=== PATIENT | female | born 1960 | race Caucasian/White ===

== ENCOUNTER 2021-06-24 08:43 | Observation (INO) | payer OTHER ==
[2021-06-24] MEDS ORDERED: Iopamidol 370 76% 100 ML VIAL ONE (09:02)
[2021-06-24] MEDS ORDERED: Morphine 4 MG/ML VIAL ONE (09:13)
[2021-06-24] MEDS ORDERED: Ondansetron PF 4 MG/2 ML Vial ONE (09:13)
[2021-06-24 09:34] LABS: #Basophils 0.1 thou/uL (0.0-0.2); #Eosinphils 0.2 thou/uL (0.0-0.7); #Monocytes 0.7 thou/uL (0.11-0.59); #Neutrophils 3.2 thou/uL (1.40-6.50); %Basophils 1.1 % (0.0-1.0); %Eosinophils 2.9 % (0.0-10.0); %Monocytes 11.6 % (0.0-10.0); %Neutrophils 52.4 % (42.0-75.0); Hemoglobin 16.7 g/dL (12.0-16.0); Mean Corpuscular HGB CONC 34.8 g/dL (32.0-36.0); Mean Corpuscular Hemoglobin 35.7 pg (27.0-31.0); Mean Platelet Volume 7.8 fL (7.4-10.4); Platelet Count 257 thou/uL (130-400); Red Blood Cell (RBC) Count 4.67 mill/uL (4.20-5.40); White Blood Cell (WBC) Count 6.1 thou/uL (4.8-10.8)
[2021-06-24 09:59] LABS: ALT (SGPT) 28 U/L (8-55); AST (SGOT) 43 U/L (5-34); Albumin 4.6 g/dL (3.5-5.0); Alkaline Phosphatase 69 U/L (40-110); Anion Gap 17 mmol/L (10-20); BUN (Urea Nitrogen) 6 mg/dL (9.8-20.1); Bilirubin, Total 1.9 mg/dL (0.2-1.2); Calc. Creatinine Clearance 0 mL/min (70-130); Calcium 9.5 mg/dL (7.8-10.44); Carbon Dioxide 19 mmol/L (22-29); Chloride 94 mmol/L (98-107); Glucose 89 mg/dL (70-105); Potassium 5.1 mmol/L (3.5-5.1); Protein, Total 8.6 g/dL (6.0-8.3); Sodium 125 mmol/L (136-145)
[2021-06-24] MEDS ORDERED: Lorazepam 2 MG/ML VIAL IM PRN (11:12)
[2021-06-24] MEDS ORDERED: Ondansetron ODT 4 MG TAB PO PRN (11:12)
[2021-06-24] MEDS ORDERED: Lorazepam 1 MG TAB PO PRN (11:12)
[2021-06-24] MEDS ORDERED: Electrolyte Replacement Protocol 1 EACH FS SCH (11:15)
[2021-06-24] MEDS ORDERED: Calcium Carbonate 500 MG ChewTAB PO PRN (11:34)
[2021-06-24] MEDS ORDERED: Acetaminophen 325 MG TAB PO PRN (11:34)
[2021-06-24] MEDS ORDERED: Senokot S 8.6-50 MG TAB PO PRN (11:34)
[2021-06-24 11:53] LABS: Magnesium 2.1 mg/dL (1.6-2.6); Phosphorus 3.5 mg/dL (2.3-4.7)
[2021-06-24 12:20] LABS: Anion Gap 16 mmol/L (10-20); BUN (Urea Nitrogen) 6 mg/dL (9.8-20.1); Calc. Creatinine Clearance 0 mL/min (70-130); Calcium 9.4 mg/dL (7.8-10.44); Carbon Dioxide 23 mmol/L (22-29); Chloride 95 mmol/L (98-107); Glucose 88 mg/dL (70-105); Potassium 3.8 mmol/L (3.5-5.1); Sodium 130 mmol/L (136-145)
[2021-06-24 12:51] VITALS: BMI 21.2
[2021-06-24] MEDS ORDERED: Cyclobenzaprine 10 MG TAB PO SCH (13:30)
[2021-06-24] MEDS ORDERED: Pantoprazole 40 MG VIAL IVP SCH (13:30)
[2021-06-24] MEDS ORDERED: Multivit, Therapeutic 1 TAB PO SCH (13:30)
[2021-06-24] MEDS ORDERED: Folic Acid 1 MG TAB PO SCH (13:30)
[2021-06-24] MEDS ORDERED: Electrolyte Replacement Protocol FS PRN (13:45)
[2021-06-24] MEDS: Lorazepam 1 MG TAB PO SCH ×2 (13:58→20:39)
[2021-06-24] MEDS ORDERED: Thiamine HCl 200 MG/2 ML VIAL SLOW IVP SCH (14:00)
[2021-06-24 14:30] LABS: Bacteria/HPF None Seen HPF (None Seen); Bilirubin Negative (Negative); Blood, Urine Negative (Negative); Clarity Clear (Clear); Glucose, Urine (Dipstick) Normal (Negative); Ketone, Urine Negative (Negative); Leukocyte Negative Leu/uL (Negative); Nitrite Negative (Negative); Protein, Urine (Dipstick) Negative (Neg-Trace); RBC/HPF 0-3 HPF (0-3); Specific Gravity, Urine 1.024 (1.002-1.036); Squamous Epithelial 0-3 HPF (0-3); Urobilinogen Normal mg/dL (Less than 2); WBC/HPF 0-3 HPF (0-3); pH, Urine 6.5 (5.0-9.0)
[2021-06-24 14:39] LABS: Amphetamine Not Detected (NotDetected); Barbiturates Screen Not Detected (NotDetected); Benzodiazepine Screen Not Detected (NotDetected); Cocaine Metabolite Screen Not Detected (NotDetected); Methadone Not Detected (NotDetected); Methamphetamine Not Detected (NotDetected); Opiate Screen Detected (NotDetected); Oxycodone Screen Not Detected (NotDetected); Phencyclidine (PCP) Not Detected (NotDetected); THC/Cannabinoid Screen Not Detected (NotDetected); Tricyclic Screen Not Detected (NotDetected)
[2021-06-24 14:49] LABS: Creatinine, Urine Less than 20.00 mg/dL (47-110); Sodium, Urine Less than 20 mmol/L (Not Available)
[2021-06-24 16:34] LABS: Anion Gap 13 mmol/L (10-20); BUN (Urea Nitrogen) 10 mg/dL (9.8-20.1); Calc. Creatinine Clearance 67 mL/min (70-130); Calcium 8.8 mg/dL (7.8-10.44); Carbon Dioxide 22 mmol/L (22-29); Chloride 99 mmol/L (98-107); Glucose 120 mg/dL (70-105); Potassium 3.7 mmol/L (3.5-5.1); Sodium 130 mmol/L (136-145)
[2021-06-24] MEDS ORDERED: HYDROcodone/Acetaminophen 5/325 mg Tablet PO PRN (17:21)
[2021-06-24] MEDS: Cyclobenzaprine 10 MG TAB PO PRN (19:55)
[2021-06-24] MEDS: HYDROcodone/Acetaminophen 5/325 mg Tablet PO PRN (19:55)
[2021-06-25] MEDS: HYDROcodone/Acetaminophen 5/325 mg Tablet PO PRN (02:21)
[2021-06-25] MEDS: Lorazepam 1 MG TAB PO SCH ×2 (02:21→08:24)
[2021-06-25] MEDS: Cyclobenzaprine 10 MG TAB PO PRN (04:44)
[2021-06-25 05:53] LABS: ALT (SGPT) 19 U/L (8-55); AST (SGOT) 22 U/L (5-34); Albumin 3.8 g/dL (3.5-5.0); Alkaline Phosphatase 57 U/L (40-110); Anion Gap 12 mmol/L (10-20); BUN (Urea Nitrogen) 11 mg/dL (9.8-20.1); Calc. Creatinine Clearance 78 mL/min (70-130); Calcium 8.7 mg/dL (7.8-10.44); Carbon Dioxide 23 mmol/L (22-29); Chloride 99 mmol/L (98-107); Globulin 2.6 g/dL (2.4-3.5); Glucose 93 mg/dL (70-105); Protein, Total 6.4 g/dL (6.0-8.3); Sodium 130 mmol/L (136-145)
[2021-06-25 06:29] LABS: Anisocytosis SLIGHT = 6-15 cells (100X) (0-5/hpf); Band 2 % (5-11); Eosinophils 7 % (0-10); Hemoglobin 14.1 g/dL (12.0-16.0); Lymphocytes 32 % (21-51); MDiff Complete? YES; Macrocytosis SLIGHT = 6-15 cells (100X) (0-5/hpf); Mean Corpuscular HGB CONC 33.7 g/dL (32.0-36.0); Mean Platelet Volume 8.2 fL (7.4-10.4); Monocytes 11 % (0-10); Neutrophil 44 % (42-75); Platelet Count 226 thou/uL (130-400); Platelet Morphology Comment Appears Adequate; RBC Distribution Width 10.9 % (11.5-14.5); Reactive Lymphocytes 3 % (0-10); Red Blood Cell (RBC) Count 4.01 mill/uL (4.20-5.40); White Blood Cell (WBC) Count 5.3 thou/uL (4.8-10.8)
[2021-06-25] MEDS ORDERED: Sodium Chloride 0.9% 500 ML IV SCH (07:15)
[2021-06-25] MEDS ORDERED: Multivit, Therapeutic 1 TAB PO SCH (09:00)
[2021-06-25] MEDS ORDERED: Folic Acid 1 MG TAB PO SCH (09:00)
[2021-06-25] MEDS ORDERED: predniSONE 20 MG TAB PO SCH (10:00)
[2021-06-25] MEDS ORDERED: Lorazepam 1 MG TAB PO PRN (11:12)
[2021-06-25 12:10] LABS: Anion Gap 15 mmol/L (10-20); BUN (Urea Nitrogen) 9 mg/dL (9.8-20.1); Calc. Creatinine Clearance 79 mL/min (70-130); Calcium 8.5 mg/dL (7.8-10.44); Carbon Dioxide 21 mmol/L (22-29); Chloride 101 mmol/L (98-107); Glucose 94 mg/dL (70-105); Potassium 3.9 mmol/L (3.5-5.1); Sodium 133 mmol/L (136-145)
[2021-06-25 12:19] VITALS: BP 122/70; TEMP 98.3
[2021-06-26] MEDS ORDERED: predniSONE 20 MG TAB PO SCH (08:00)
[2021-06-26] MEDS ORDERED: Lorazepam 1 MG TAB PO PRN (11:12)
[2021-06-26] MEDS ORDERED: Lorazepam 0.5 MG TAB PO SCH (14:00)
[2021-06-27] MEDS ORDERED: Thiamine 100 MG TAB PO SCH (09:00)
[2021-06-27] MEDS ORDERED: Lorazepam 0.5 MG TAB PO PRN (11:12)
== END 2021-06-25 16:35 | disposition home or self-care (01) ==
LOC: ERS 08:43 → MSONC 11:26
PROVIDERS: ADMIT Internal Medicine; ATTEND Nurse Practitioner Family
DX: M54.50 Low back pain, unspecified (principal); M62.830 Muscle spasm of back; E87.1 Hypo-osmolality and hyponatremia; F17.210 Nicotine dependence, cigarettes, uncomplicated; Z72.89 Other problems related to lifestyle; I10 Essential (primary) hypertension; K76.0 Fatty (change of) liver, not elsewhere classified; W17.81XA Fall down embankment (hill), initial encounter
CPT/HCPCS: 36415; 74177; 80053; 80306; 81001; 82570; 82607; 82746; 83735; 83930; 83935; 84100; 84300; 85025; 96374; 96375; C9113; G0378; J2270; J2405; J3411; J7030; J7512; Q9967